=== PATIENT | female | born 1955 ===

== ENCOUNTER 2019-12-08 08:27 | Day surgery (SDC) | payer OTHER, MEDICARE ==
[~2019-12-08] VITALS: Ht 167.6 cm; Wt 53.8 kg
[~2019-12-08 08:27] MED LIST: LEVO25TA2 PO; NICO-487 TD; OMEP-110 PO; SUCR1TAB PO; [UNRECOGNIZED DRUG - CODE]
[2019-12-08] MEDS ORDERED: LACTATED RINGERS 1,000 ML IV SCH (09:04)
[2019-12-08] MEDS ORDERED: ASCO10004 PO (09:12)
[2019-12-08] MEDS ORDERED: ACET-1600 PO (09:12)
[2019-12-08] MEDS ORDERED: ATORVASTATIN PO (09:12)
[2019-12-08] MEDS ORDERED: CYAN1TAB29 PO (09:12)
[2019-12-08] MEDS ORDERED: LISI-167 PO (09:12)
[2019-12-08] MEDS ORDERED: VITAMIN D3 PO (09:12)
[2019-12-08 09:13] VITALS: BP 143/81
[2019-12-08 09:16] VITALS: BP 143/81
[2019-12-08] MEDS ORDERED: LIDOCAINE-MPF 1%, 2ML ONE (09:18)
[2019-12-08] MEDS ORDERED: PLEASE ENTER HEIGHT AND WEIGHT MC SCH (09:30)
[2019-12-08] MEDS ORDERED: LIDOCAINE-MPF 1%, 2ML INFIL ONE (09:30)
[2019-12-08 09:55] LABS: ALANINE AMINOTRANSFERASE 10 U/L (12-78); ALBUMIN 3.7 g/dL (3.4-5.0); ANION GAP 8 mmol/L (5-15); CALCIUM 8.6 mg/dL (8.5-10.1); CHLORIDE 114 mmol/L (98-107); CREATININE 0.77 mg/dL (0.55-1.02)
[2019-12-08 09:57] LABS: ALKALINE PHOSPHATASE 89 U/L (45-117); BILIRUBIN,TOTAL 0.3 mg/dL (0.2-1.0); TOTAL PROTEIN 7.7 g/dL (6.4-8.2)
[2019-12-08] MEDS ORDERED: PROPOFOL 10 MG/ML, 20ML ONE (10:46)
[2019-12-08] MEDS ORDERED: PROPOFOL 50 ML ONE (10:46)
[2019-12-08] MEDS ORDERED: FENTANYL PF 100 MCG/2ML IV PRN (12:00)
[2019-12-08] MEDS ORDERED: DIAZEPAM 5 MG/ML, 2ML IVPush PRN (12:00)
[2019-12-08] MEDS ORDERED: ONDANSETRON 2MG/ML, 2ML IV PRN (12:00)
[2019-12-08] MEDS ORDERED: DIPHENHYDRAMINE 50 MG/ML, 1ML IVPush PRN (12:00)
[2019-12-08] MEDS ORDERED: MEPERIDINE/PF 25MG/ML,1ML IVPush PRN (12:00)
[2019-12-08] MEDS ORDERED: PROMETHAZINE 25 MG/ML, 1ML IV PRN (12:00)
[2019-12-08] MEDS ORDERED: EPHEDRINE 50 MG/ML, 1ML IVPush PRN (12:00)
[2019-12-08] MEDS ORDERED: EPHEDRINE 50 MG/ML, 1ML IM PRN (12:00)
[2019-12-08] MEDS ORDERED: ONDANSETRON ODT 8 MG PO PRN (12:00)
== END 2019-12-08 13:50 | disposition home or self-care (01) ==
LOC: OUT 08:27
PROVIDERS: ATTEND Internal Medicine
DX: I10 Essential (primary) hypertension (principal); E78.5 Hyperlipidemia, unspecified; M19.90 Unspecified osteoarthritis, unspecified site; Z87.11 Personal history of peptic ulcer disease; Z98.890 Other specified postprocedural states; Z96.642 Presence of left artificial hip joint; F17.210 Nicotine dependence, cigarettes, uncomplicated; Z79.899 Other long term (current) drug therapy; K31.89 Other diseases of stomach and duodenum; K86.89 Other specified diseases of pancreas
CPT/HCPCS: 36415; 43238; 80053; 88172; 88173; 88177; 88305; 93005; J2704; J7120